=== PATIENT | female | born 1985 | race Caucasian/White ===

== ENCOUNTER 2021-11-04 01:06 | Day surgery (SDC) | payer OTHER, SELFPAY ==
[2021-10-28 15:35] VITALS: BMI 23.5
--- NOTE | 2021-10-28 15:43 | PC.NURSE ---
Report to the Outpatient Waiting Room, entrance under the green pavilion located off [facility], at time 1000 on date 11/04/21. OR Time: 1200. - You and your visitor will be asked to self-screen and do not enter if you have any COVID symptoms. - Only one visitor and NO children visitors are allowed at this time. - The patient visitor is requested to leave or wait in car when not with patient due to restrictions. - A mask is required within the hospital. Patients may have clear liquids (water, carbonated beverages, clear teas, apple juice) until 3 hours prior to surgery with a maximum of 20 ounces. - No food from midnight until time of surgery Take the following medications with a SIP of water the morning of surgery: N/A Medications to discontinue per physician: N/A Date to take last dose: N/A Please no make-up, nail greenlandic, hairspray, perfume, deodorant, or body powder the day of surgery. No jewelry (including any body piercings) or valuables the day of surgery, leave them at home. Please take a shower or bath the night before, or the morning of, surgery with an antibacterial soap. Wear comfortable, loose fitting clothing. - Jewelry must be removed prior to entering the operating room. Rings and piercings that are not removed may be cut off. - The hospital will not accept responsibility for valuables. - Please leave all valuables, including medications, at home the day of surgery. If you are going home after surgery, a licensed local company truck driver must drive you home. - NO public transportation without another adult. - We recommend that an adult stay with you for 24 hours following discharge. - We also recommend that you do not drive, make important decision, drink alcoholic beverages, or take any drugs that were not prescribed by your health care provider for at least 24 hours after your discharge time. Follow any additional instructions given to you from your surgeon. If you or anyone in your household have experienced Covid symptoms in the past week, please notify your surgeon or the nurse liaison at the phone number below for possible testing. Telephone instructions given to PT - CAROL LORA and asked if any additional questions and then verbalized understanding. Patient advised to call surgeon office or pre surgery nurse liaison [phone] if any additional questions.
[2021-11-04] VITALS (9 sets, daily range): BP systolic 104–130; BP diastolic 54–69; PULSE 67–100; RESP 13–16; TEMP 36.2–36.9; O2SAT 96–100
[2021-11-04] MEDS: ACETAMINOPHEN 500 MG TABLET 1000 MG PO (10:38)
[2021-11-04] MEDS: GABAPENTIN 300 MG CAPSULE PO (10:38)
[2021-11-04] MEDS: LACTATED RINGERS 1,000 ML 30 ML IV CONT ×2 (10:46→13:40)
--- NOTE | 2021-11-04 11:24 | P.PNAN_ITS ---
Anes - Initial Pre Proc Eval Procedure: Operation Date: 11/04/21 12:00 Proposed Procedures p Diagnostic Laparoscopy with Bilateral Salpingectomy - Jacqui Rosado DO Date/Time: 11/04/21 11:24 Surgeon: Jacqui Rosado DO Pre Op Diagnosis: Desire Surgical Sterility Patient Data Age: 36 Gender: F Height: 1.7 m Weight: 66.85 kg Last Vital Signs Temp 97.2 F L 11/04/21 10:15 Pulse 75 11/04/21 10:15 Resp 16 11/04/21 10:15 BP 116/54 L 11/04/21 10:15 Pulse Ox 100 11/04/21 10:15 O2 Del Method Room Air 11/04/21 10:15 Allergies Allergy/AdvReac Type Severity Reaction Status Date / Time adhesive tape AdvReac Mild Rash Verified 11/04/21 10:33 Home Medications Medication Instructions Recorded Confirmed Type No Home Medications 10/28/21 11/04/21 History Patient hx anesthesia problems: none Family hx anesthesia problems: none Results Review: All pre-operative results and documents have been reviewed as part of the pre- operative evaluation. PMF Social History Social History Smoking status: Never smoker Alcohol intake: never Substance use: never Substance use type: does not use Living arrangements: with family Spiritual care concerns: No Anes - Eval Final PreProcedure Day of Procedure 11/04/21 11:24 Patient weight: normal Heart: regular rate and rhythm Lungs: clear to auscultation Airway: Mallampati scale class II Neurological: alert and oriented Last oral intake: >/= 8 hours ASA classification: II Emergent: no Anesthetic plan: proceed Anesthesia type and monitoring: general ETT and standard monitoring Results Review: All pre-operative results and documents have been reviewed as part of the pre- operative evaluation. Informed Consent: The patient's anesthetic plan and its attendant risks and benefits were discussed with the patient/family/POA. Questions were solicited and answers provided to the satisfaction of the patient/family/POA.
--- NOTE | 2021-11-04 11:43 | PM.IMHP ---
H&P: HPI History of Present Illness Date/Time: 11/04/21 11:43 Chief Complaint: I'm here to have my tubes out Narrative: Patient here with undesired fertility, requesting permanent sterilization Review of Systems Review of Systems: All systems reviewed & are unremarkable except as noted in HPI and below PMFSH Social History Social History Smoking status: Never smoker Alcohol intake: never Substance use: never Substance use type: does not use Living arrangements: with family Spiritual care concerns: No Meds Home Medications and Allergies Home Medications Medication Instructions Recorded Confirmed Type No Home Medications 10/28/21 11/04/21 History Allergies Allergy/AdvReac Type Severity Reaction Status Date / Time adhesive tape AdvReac Mild Rash Verified 11/04/21 10:33 Vital Signs Vital Signs - 24 hr 11/04/21 10:15 Temperature 36.2 C L Pulse Rate 75 Respiratory Rate 16 Blood Pressure 116/54 L Pulse Oximetry 100 Oxygen Delivery Room Air Exam Const: General: comfortable and no acute distress Eyes: General: appearance normal, both eyes and all related structures Cardio: Rate: regular rate Rhythm: regular rhythm GI: GI Palp: Yes Soft to palpation Auscultation: normal bowel sounds Neuro: General: gait normal Extrem: General: normal to inspection Assessment and Plan Assessment and plan (1) Sterilization: Code(s): Z30.2 - Encounter for sterilization Status: Acute
--- NOTE | 2021-11-04 11:45 | WPDHPUPDATE1 ---
History and Physical Update Update Date/Time: 11/04/21 11:45 History and Physical has been reviewed, including an updated exam of the patient. There are NO changes in the patient's condition. Risks, benefits, and alternatives have been discussed and questions answered. Patient agrees to proceed with procedure.
[2021-11-04] MEDS: BUPIVACAINE/EPINEPHRINE 0.25% 50 ML VIAL 10 ML INFILTRATE (12:25)
--- NOTE | 2021-11-04 12:57 | W.PM.PROC2 ---
Procedure Note - Detailed Date of Procedure 11/04/21 Pre-op Diagnosis Desire Surgical Sterility Post-op Diagnosis Same Procedure Performed Diagnostic laparoscopy, bilateral salpingectomy Surgeon Jacqui Rosado DO Social Worker Herlinda Indications Undesired fertility Findings Normal appearing vulva and vaginal canal. Normal medium sized cervix. Internally, the pelvic and abdominal structures were unremarkable. Description of Procedure The patient was taken to the operating room where she was placed under general anesthesia. No preoperative antibiotics were indicated. She was prepped and draped in the normal sterile fashion in the dorsal lithotomy position. A time-out was performed. A Del Valle catheter was placed. The cervix was visualized with a speculum in the anterior lip was grasped with a single-tooth tenaculum. The cervix was sequentially dilated up to accommodate a Kroner uterine manipulator. The speculum and tenaculum were then removed, gloves were changed and attention was then turned to the abdomen. The skin below the umbilicus was grasped with 2 penetrating towel clamps and the area was injected with local. A small incision was made and a Veress needle was introduced. The saline water drop test was performed to confirm intraperitoneal placement. Once this was positive, CO2 insufflation was started and the abdomen was brought to a filling pressure of 15 mmHg. Once the abdomen was insufflated, the Veress needle was replaced with a 5 mm Optiview trocar which was inserted under direct visualization. Survey of the abdomen revealed no evidence of bowel or vascular injury upon entry. Patient was then placed in steep Trendelenburg position. Additional port sites in the right and left lower quadrants were identified, injected and incised. 5 mm trocars were introduced under direct visualization. Survey of the abdomen revealed normal findings as mentioned above. The right tube was elevated and then cauterized and transected off using LigaSure. It was then passed off through the junior administrative assistant port. The procedure was repeated in an identical fashion on the left side. The surgical pedicles were reinspected and found to be hemostatic. The instruments were removed and the CO2 gas was allowed to escape from the abdomen. The trocars were removed and the incisions were closed with subcuticular 4-0 Monocryl. The Del Valle and uterine manipulator were then removed. Silver nitrate was used to make the tenaculum sites hemostatic. The patient was taken to the recovery room in stable condition. All instrument sponge counts were correct at the conclusion of the procedure. Estimated Blood Loss -5.0 Urine Output -100.0 Pathology Yes (bilateral fallopian tubes) Condition Stable Disposition PACU
[2021-11-04] MEDS: fentaNYL CITRATE INJ (*CRX) 100 MCG/2 ML VIAL 25 MCG IV PUSH ×2 (13:26→14:13)
[2021-11-04] MEDS: oxyCODONE HCL (*CRX) 5 MG TAB IR PO (14:16)
== END 2021-11-04 15:05 | disposition home or self-care (01) ==
PROVIDERS: Visit Provider Obstetrics & Gynecology Gynecologic Oncology
PROC: (CPT 49320; principal; 2021-11-04 12:00)
DX: Z30.2 Encounter for sterilization (principal)
CPT/HCPCS: 58661; 88302; A9270; J1100; J1170; J2250; J2405; J2704; J2710; J3010; J7030; J7120